=== PATIENT | female | born 1950 | race Caucasian/White ===

== ENCOUNTER → 2025-04-13 10:19 | Outpatient (CLI) | payer MEDICARE, MEDICAID, SELFPAY ==
--- NOTE | 2025-04-13 10:27 | EKG_ITS ---
[address] [address] Test Date: 2025-04-13 Pat Name: Glendy Cary Department: 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
[2025-04-13 11:27] LABS: Add Manual Diff / Slide Review NO; Basophils Absolute Auto 100 /uL (0-100); Basophils Percent Auto 0.9 % (0-2); Eosinophils Absolute Auto 200 /uL (0-450); Eosinophils Percent Auto 1.8 % (2-4); Hematocrit 44.4 % (36-46); Hemoglobin 14.6 g/dL (12.0-16.0); Lymphocytes Absolute Auto 2100 /uL (1100-4500); Lymphocytes Percent Auto 22.4 % (25-40); Mean Corpuscular HGB Conc 32.8 % (30-36); Mean Corpuscular Hemoglobin 32.5 PG (26-34); Mean Corpuscular Volume 99.2 fL (80-100); Monocytes Absolute Auto 800 /uL (0-900); Monocytes Percent Auto 8.3 % (3-14); Neutrophils Absolute Auto 6400 /uL (1500-7000); Neutrophils Percent Auto 66.6 % (50-75); Platelet Count 554 X10^3/uL (150-400); Red Blood Cell Count 4.48 X10^6/uL (4.0-5.2); White Blood Cell Count 9.6 X10^3/uL (4.5-11.0)
[2025-04-13 11:39] LABS: Hemoglobin A1C% w Est Avg Glu 5.2 % (4.0-6.0)
[2025-04-13 12:05] LABS: Appearance Urine UA CLEAR; Bilirubin Urine UA NEGATIVE (NEGATIVE); Color Urine UA YELLOW; Glucose Urine UA NEGATIVE (Negative); Ketones Urine UA NEGATIVE (NEGATIVE); Leukocyte Esterase Urine UA 3+ (NEGATIVE); Nitrite Urine UA NEGATIVE (Negative); Occult Blood Urine UA NEGATIVE (Negative); Protein Urine UA NEGATIVE (Negative); Specific Gravity Urine UA <=1.005 (1.000-1.035); Urobilinogen Urine UA 0.2 E.U./dL (0.2)
[2025-04-13 12:14] LABS: BUN Creatinine Ratio 22.1 (6-22); Blood Urea Nitrogen 17 mg/dL (7-17); Calcium 9.9 mg/dL (8.4-10.2); Carbon Dioxide 28 mmol/L (22-32); Chloride 104 mmol/L (98-107); Estimated Glomerular Filt Rate > 60 mL/min (>60); Glucose 97 mg/dL (70-99); HEMOLYSIS < 15 (0-50); Potassium 4.7 mmol/L (3.4-5.1); Sodium 140 mmol/L (137-145)
[2025-04-13 12:18] LABS: RBC Urine 0-1/HPF (0-5/HPF); Urine Volume 10mL (spun); WBC Urine 5-10/HPF (0-5/HPF)
[2025-04-13 12:19] LABS: Bacteria Urine Occasional (0-1); Culture Indicated Urine Specimen Cultured; Squamous Epithelial Cell Urine 1-5 /HPF (0-5/HPF); Transitional Epi Cells Urine 1-5/HPF (0-5/HPF); White Blood Cell Casts Urine 0-1/LPF
== END ==
PROVIDERS: PCP Family Medicine; Referring Provider Family Medicine; Visit Provider Orthopaedic Surgery
DX: Z01.818 Encounter for other preprocedural examination (principal); R73.9 Hyperglycemia, unspecified; N39.0 Urinary tract infection, site not specified; Z01.812 Encounter for preprocedural laboratory examination
CPT/HCPCS: 36415; 80048; 81001; 83036; 85025; 87086; 93005

== ENCOUNTER 2025-04-25 06:00 | Day surgery (SDC) | payer MEDICARE, MEDICAID, SELFPAY ==
[2025-04-18 08:27] VITALS: BMI 23.9
[2025-04-25] VITALS (12 sets, daily range): BP systolic 92–132; BP diastolic 50–81; PULSE 73–97; RESP 12–21; TEMP 35.8–36.6; O2SAT 91–100; BMI 23.9
--- NOTE | 2025-04-25 | DI.RAD.S_ITS ---
PROCEDURE: XR HIP W PEL IF DONE RT 2V INDICATIONS: INTRA OP TECHNIQUE: 2 view(s) of the hip acquired. COMPARISON: None. FINDINGS: Bones: Patient is status post right hip arthroplasty, with hardware components in expected positions. The hip joint appears congruent. The visualized bony structures appear intact. Soft tissues: Overlying postoperative changes are noted. No suspicious soft tissue densities. IMPRESSION: Expected post-operative appearance of a hip arthroplasty. Dictated by: Osman Rocha M.D. on 04/25/2025 at 11:02 Approved by: Osman Rocha M.D. on 04/25/2025 at 11:02
--- NOTE | 2025-04-25 06:00 | DI.RAD.S_ITS ---
PROCEDURE: XR PELVIS 1-2V INDICATIONS: RT TOTAL HIP INTRA-OP TECHNIQUE: Intra-operative view of the pelvis and hip acquired. COMPARISON: None. FINDINGS: Bones: Intraoperative devices prior to placement of arthroplasty prostheses are in expected positions. No fractures or suspicious bony lesions. Soft tissues: Overlying surgical retractors are present, along with other intraoperative changes. IMPRESSION: Intraoperative view of the pelvis for surgical indications. Dictated by: Osman Rocha M.D. on 04/25/2025 at 10:02 Approved by: Osman Rocha M.D. on 04/25/2025 at 10:03
[2025-04-25] MEDS: VANCOMYCIN 1,000 MG in SODIUM CHLORIDE 0.9% 250 ML 250 MG IV (06:46)
[2025-04-25] MEDS: ACETAMINOPHEN 325 MG TABLET 975 MG PO (06:47)
[2025-04-25] MEDS: LACTATED RINGERS 1,000 ML 42 ML IV ×2 (06:52→09:43)
--- NOTE | 2025-04-25 07:41 | PM.PREOP ---
Pre-operative Note Interval Note History & Physical reviewed/Exam performed by Physician: Yes Changes to H&P: No
--- NOTE | 2025-04-25 07:42 | PM.OP.1 ---
Operative Date/Time/Diagnoses Date of procedure: 04/25/25 Time of procedure: 07:42 Pre-op diagnosis: right hip OA Post-op diagnosis: same Procedure & Clinicians Procedure: Right total hip arthroplasty posterior approach Same procedure(s) as scheduled: Yes Indications: The patient has had progressively worsening right hip pain with radiographic changes consistent with arthritis. Non-operative management has failed and the patient has requested total hip replacement. The risks, benefits and alternatives to surgery were discussed with the patient prior to proceeding. Risks discussed included, but were not limited to, failure to relieve pain, leg length discrepancy, dislocation, stiffness, infection, nerve damage, deep venous thrombosis, pulmonary embolism, stroke, coma, heart attack, permanent paralysis and , as well as the potential need for eventual revision of the prosthetic. Surgeon: Sneha Ross Glass Cleaning Machine Tender: Osei Felix Anesthesia Type: General and Spinal Operative Notes Findings: Soft bone, severe arthritis, adequate stability Closure Type: primary Specimen(s): none sent Prosthetic devices, grafts, tissues, transplants, or devices: Ross and nephew R3 50, neutral poly liner,two 6.5 mm screws, Synergy cemented stem size 11 standard offset, cobalt chrome head 36 by +0 Applied: none Estimated Blood Loss (mL): 250 Blood products transfused: none Procedure in detail: The patient was seen in the pre-operative area, where the patient identified the right hip as the operative site and this was marked with my initials. The patient received pre-operative antibiotics and was taken to the operating room and placed on the operative table in the left lateral decubitus position after satisfactory anesthesia. A patient care manager out was performed. The right leg was prepared from the ankle to the iliac crest with ChloroPrep in the usual fashion and draped through sterile drapes. A PA was used during the procedure and was essential for intraoperative retraction and safe implantation of the components. The hip was approached through an approximately 20 cm incision centered over the greater trochanter and curving gently posteriorly as it went proximally. This was carried sharply to the fascia bianca, which was divided and retracted with a self retaining retractor. The trochanteric bursa was excised with care being taken to avoid the sciatic nerve, which was identified and protected throughout the case. The short external rotators were incised and the capsulomuscular flap was raised and tagged for later repair. The hip was dislocated, and a femoral neck osteotomy performed approximately 15 mm above the lesser trochanter. Retractors were placed around the femur. The canal was opened with a box cutting osteotome, followed by a T handled reamer and a lateralizing reamer. The reamers were used and then the initial broach was then used, followed by sequential broaching until there was good stability of the broach in the femur. Retractors were placed to expose the acetabulum. The labrum and central soft tissues were removed. Reaming was performed initially going up in 2 mm increments, then 1 mm increments until good bite was obtained with an odd sized reamer. The cup 1 mm larger than the last reamer was then inserted using the appropriate anteversion guides. It was further stabilized with two screws. A trial neutral liner was placed. The broach was placed in the canal. A trial head and neck were then placed and the hip relocated and checked for leg length and stability. An intraoperative film confirmed the component position and no evidence of fracture. The patient was stable in the position of sleep, of squatting, and could be put through a range of motion with 45 degrees internal rotation without dislocation. At 90 degrees flexion, internal rotation to 70 degrees was possible before dislocation. This was felt to be satisfactory and the appropriate components were opened, and the trials were removed. The acetabular liner was impacted into position. The final stem was then impacted into the prepared femoral canal. A brief Betadine soak was performed while trialing with head options. The hip was meticulously irrigated with normal saline. Finally the femoral head was impacted onto the stem. The acetabulum was cleared of all material and the hip relocated one final time. The capsulomuscular flap was then repaired to the greater trochanter though an awl hole using the tag sutures. The short external rotators were repaired with a nonabsorbable suture. The fascia bianca was closed with Vicryl. The subcutaneous layer was closed with barbed sutures and surgical glue. An Aquacel Ag dressing was applied and the patient was taken to recovery having tolerated the procedure well. Complications: none Post-operative Condition: stable Disposition: Acute Care Plan for aftercare: The patient will be maintained on a standard total hip replacement protocol with weight bearing as tolerated and posterior hip precautions. The patient will receive Aspirin and sequential compression devices for DVT prophylaxis. The patient will be discharged home when safe for the home environment.
[2025-04-25] MEDS: CEFAZOLIN 2 GM/100 ML PREMIX 100 ML IV ×3 (08:05→23:52)
[2025-04-25] MEDS: TRANEXAMIC ACID 1,000 MG VIAL 1000 MG INJ ×2 (08:07→09:45)
--- NOTE | 2025-04-25 08:41 | SUR.OPER ---
Lateral on padded OR bed. Gel axillary roll. Arms secured on padded armboard with pillow supporting top arm. Padded hip positioner braces x4 - anterior and posterior chest and pelvis. Additional gel pad used anterior pelvis. Gel pad under bottom leg from knee to foot and secured with tape over sheet.
[2025-04-25] MEDS: BUPIVACAINE LIPOSOME 266 MG/20 ML VIAL INJ (09:17)
[2025-04-25] MEDS: BUPIVACAINE 0.25% W/ EPI 30 ML VIAL 60 ML INJ (09:17)
[2025-04-25] MEDS: BUPIVACAINE 0.25% (PF) 60 ML, EPINEPHrine 0.3 MG INJ (09:18)
[2025-04-25] MEDS: OXYCODONE IR 5 MG TABLET PO ×4 (10:52→21:37)
[2025-04-25] MEDS: BENZOCAINE/MENTHOL 1 LOZ PKT 1 EACH PO (10:52)
[2025-04-25] MEDS: IBUPROFEN 400 MG TABLET PO ×2 (11:48→17:26)
[2025-04-25] MEDS: LACTATED RINGERS 1,000 ML 100 ML IV (11:49)
[2025-04-25] MEDS: ACETAMINOPHEN 325 MG TABLET 650 MG PO ×2 (12:45→23:52)
--- NOTE | 2025-04-25 14:43 | PT.IIE ---
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 fracture Pulmonary nodule, left Situational anxiety Thrombocytosis Physical Therapy Inpatient Evaluation/Re-Eval M1 PT/OT-IP Prior Functional Status Start: 04/25/25 16:06 Freq: NEEDED Status: Active Protocol: Document 04/25/25 14:43 AB (Rec: 04/25/25 16:15 AB [id number]) Medical Review Prior Functional Status Medical History Yes Reviewed Communication able to make needs known Mobility and Gait pt stated that she was modified independent with all mobilities and ambulation using a 4WW Social History Household Members none Living Arrangements Assisted Living Number of Floors ( Two Floors Floors) Number of Stairs To pt lives at [facility] BEN: 2nd floor with access to Enter/Railing? an elevator Home Environment Standard Height Toilet,Elevator Home Equipment Front Wheel Walker,Four Wheel Walker,Hand Held Shower, Sock Aid,Grab Bars Near Toilet,Grab Bars In Shower M2 PT-IP Current Condition Start: 04/25/25 16:06 Freq: NEEDED Status: Active Protocol: Document 04/25/25 14:43 AB (Rec: 04/25/25 16:15 AB [id number]) Physical Therapy Current Condition Current Condition Evaluation Date 04/25/25 Treatment Diagnosis s/p R MARLEY posterior; difficulty in walking Onset Date 04/25/25 M3 PT-IP Subjective Start: 04/25/25 16:06 Freq: NEEDED Status: Active Protocol: Document 04/25/25 14:43 AB (Rec: 04/25/25 16:15 AB [id number]) Subjective Physical Therapy Visit Type Type Initial Evaluation Visit Start Time 14:43 Visit Stop Time 15:20 Number of HEALTH INFORMATION TECH Visits 0 Physical Therapy Visit Comments Patient Comments agreeable to do PT Therapy Pain Assessment Pain When Pain Assessed At Rest Pain Present Pain Present Pain Reported Location right hip Intensity 4 Scale Used Numeric (0 - 10) Pain Management Apply Cold,Distraction,Modification of Treatment,Timing Techniques of Activity with Medications M4 PT-IP Mobility and Gait Start: 04/25/25 16:06 Freq: NEEDED Status: Active Protocol: Document 04/25/25 14:43 AB (Rec: 04/25/25 16:15 AB [id number]) PT-Bed Mobility Assessment Supine to Sit Supine to Sit Standby Assistance PT-Transfer Assessment Sit to and From Stand Sit to and from Contact Guard Assistance,1 Person Assistance,Use of Stand Upper Extremities Equipment Transfer Assistive Gait Belt,Front Wheeled Walker Device Orthotic/Prosthetic No Devices or Brace: Transfers Transfer Destination Toilet Transfer Technique ambulated Transfer Ability Level of Assist Contact Guard Assistance,1 Person Assistance,Use of Upper Extremities Comments Mobility Comments pt in bed and agreeable to do PT. obtained PLOF and home set up. educated pt on R hip posterior precautions. pt requested to use the toilet. supine to sit SBA. no c/o dizziness. sit to stand CGA and ambulated to the toilet using FWW CGA ~ 12 ft. OT took over pt's care. Gait Assessment Gait Gait Assistance Contact Guard Assist Required: Distance (Feet) 12 Able to Maintain Yes Weight Bearing Status During Gait Assistive Devices Assistive Device Gait Belt,Front Wheeled Walker Orthotic/Prosthetic No Devices or Brace: Gait Deviations General Gait Pattern Antalgic,Decreased Stride Length,Decreased Feet Clearance,Step-to Gait Factors Limiting Gait Function Factors Limiting Decreased Activity Tolerance,Decreased Sensation, Gait Function Decreased Strength,Limited Range of Motion,Pain,Poor Balance,Poor Safety Awareness PT-Balance Assessment Sitting Balance and Reactions Static Sitting Normal Balance Ability Dynamic Sitting Good Balance Ability Standing Balance and Reactions Static Standing Fair Balance Ability Dynamic Standing Fair Balance Ability Device Used FWW M5 PT-IP Objective Assessments Start: 04/25/25 16:06 Freq: NEEDED Status: Active Protocol: Document 04/25/25 14:43 AB (Rec: 04/25/25 16:15 AB [id number]) Orientation Orientation/Cognition Level of Alertness Alert Orientation Name,Place,Situation Language Function No Deficits Noted Ability Safety Awareness Decreased Safety Awareness Memory Description No Deficits Noted Gross Range of Motion Lower Extremity ROM Assessment Within Functional Limits Strength Lower Extremity Strength Assessment Right Impaired Hip 3+/5 Knee 4-/5 Coordination Assessment Gross Coordination Gross Coordination WNL Sensation Assessment Sensation Gross Sensation Right LE Impaired Sensation Numbness Description Comments Sensation Comments slight numbness on R foot per pt: chronic from neuropathy Muscle Tone Muscle Tone WNL Yes M6 PT-IP Treatment Start: 04/25/25 16:06 Freq: NEEDED Status: Active Protocol: Document 04/25/25 14:43 AB (Rec: 04/25/25 16:15 AB [id number]) Physical Therapy Treatment Education Education Provided Precautions,Weight Bearing Status,Post-Op Packet,Safety M7 PT-IP Assessment and Plan Start: 04/25/25 16:06 Freq: NEEDED Status: Active Protocol: Document 04/25/25 14:43 AB (Rec: 04/25/25 16:15 AB [id number]) PT Summary Assessment and Plan Potential Rehabilitation Good Potential Status of Condition Evolving at Evaluation Summary Impairments Pain,ROM,Strength,Balance,Coordination,Sensation,Tone, Cognition,Bed Mobility,Transfers,Gait,Activity Tolerance Assessment Summary pt is a 74 y/o F s/p R MARLEY posterior approach POD 0. pt with R hip posterior precautions and is WBAT. pt requiring CGA with mobility using FWW but needs cues for precautions and safety. pt lives at [facility] and has access to assistance when needed. will continue to assess progress. pt will benefit from HHPT vs outpt PT. Goals Bed Mobility Goal Independent Transfer Goal Independent,Front Wheeled Walker,Four Wheeled Walker Gait Goal Independent,Front Wheel Walker,Four Wheel Walker Gait Distance 150 Days to Meet Goals 5 Frequency of Treatment Frequency Of Twice a Day Treatment Treatment Plan Physical Therapy Bed Mobility Training,Transfer Training,Gait Training, Treatment Plan Therapeutic Exercise,Balance Retraining,Post Op Education,Discharge Planning,Hot or Cold Pack, Neuromuscular Re-ed,Coordination Retraining,Manual Therapy Precautions Posterior Hip No Hip Flexion > 90 degrees,No Hip Internal Rotation,No Precautions Hip Adduction Weight Bearing Status Weight Bearing Weight Bear as Tolerated Status Allowed Weight RLE WBAT Bearing Amount ( enter % or #) (%) Recommendations To Nursing Amount of Assist 1 Person Assist Needed Discharge Recommendations PT Discharge Home with Assistance,Home Health,Outpatient PT Recommendations Transportation Needs Private Vehicle,Wheelchair/Cabulance at Discharge - PT assist 1
--- NOTE | 2025-04-25 15:30 | OT.IP.EVAL ---
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 Pulmonary nodule, left Situational anxiety Thrombocytosis Surgical History (Last Updated 04/17/25 @ 13:46 by Mary Reilly, RN) Hx of appendectomy Hx of left mastectomy (07/2024) Occupational Therapy Inpatient Evaluation/Re-Eval M1 PT/OT-IP Prior Functional Status Start: 04/25/25 16:06 Freq: NEEDED Status: Active Protocol: Document 04/25/25 14:43 AB (Rec: 04/25/25 16:15 AB [id number]) Medical Review Prior Functional Status Medical History Yes Reviewed Communication able to make needs known Mobility and Gait pt stated that she was modified independent with all mobilities and ambulation using a 4WW Social History Household Members none Living Arrangements Assisted Living Number of Floors ( Two Floors Floors) Number of Stairs To pt lives at [facility] LONGTERM: 2nd floor with access to Enter/Railing? an elevator Home Environment Standard Height Toilet,Elevator Home Equipment Front Wheel Walker,Four Wheel Walker,Hand Held Shower, Sock Aid,Grab Bars Near Toilet,Grab Bars In Shower M2 OT-IP Current Condition Start: 04/25/25 15:55 Freq: Status: Active Protocol: Document 04/25/25 15:55 [facility] (Rec: 04/25/25 16:24 [facility] Desktop) Occupational Therapy Current Condition Current Condition Evaluation Date 04/25/25 Treatment Diagnosis S/P R MARLEY posterior precautions. Diagnosis Onset Date 04/25/25 Post Operative Precautions Posterior Hip No Hip Flexion > 90 degrees,No Hip Internal Rotation,No Precautions Hip Adduction Weight Bearing Status Weight Bearing Weight Bear as Tolerated Status M3 OT- IP Subjective and Pain Start: 04/25/25 15:55 Freq: Status: Active Protocol: Document 04/25/25 15:55 [facility] (Rec: 04/25/25 16:24 [facility] Desktop) OT- Subjective Occupational Therapy Visit Type Type Initial Evaluation Visit Start Time 14:50 Visit Stop Time 15:30 Occupational Therapy Visit Comments Patient Comments Pt agreed to get up for therapy eval. Patient/Caregiver To go home. Goals OT Pain Assessment Pain When Pain Assessed During Mobility Pain Present Pain Present Pain Reported Location right hip Intensity 4 Scale Used Numeric (0 - 10) M4 OT- IP ADL's Start: 04/25/25 15:55 Freq: Status: Active Protocol: Document 04/25/25 15:55 [facility] (Rec: 04/25/25 16:24 [facility] Desktop) OT ADL-Grooming Comments OT Grooming Comments Pt refused at this time. Pt able to wash her hands after set-up while in bed. OT ADL-Oral Care Comments Oral Care Comments Not performed OT ADL-Dressing General Eval Lower Body Dressing Maximum Assistance Ability Comments OT Dressing Comments Having to educate pt on use of LB dressing equipment for brief management needs. Pt initially trying to reach forwards to olegario her Depends. Also educated her to dress the RLE first and take out last. OT ADL-Toileting General Evaluation Toileting Ability Minimal Assistance Areas Needing Manage Clothing Assistance Comments OT Toileting Pt able to wipe appropriately without leaning forwards Comments more than 90degrees. Pt educated would be easier to stand and wipe after a bowel movement. OT ADL-Bathing Comments OT Bathing Comments Spoke of care of the dressing for showering needs. M5 OT- IP IADL's Start: 04/25/25 15:55 Freq: Status: Active Protocol: Document 04/25/25 15:55 [facility] (Rec: 04/25/25 16:24 [facility] Desktop) OT-Instrumental Activities of Daily Living Home Safety Awareness Home Safety Comments Pt is a little groggy from just having surgery this morning. Reminded her not to get up on her own and use the call light for assist. Medication Management Medication Pt states does her own. Management Comments Money Management Money Management Pt states does her own. Comments Brusher Machine Brusher Machine Pt will benefit from assist. Comments M6 OT- IP Functional Cognition Start: 04/25/25 15:55 Freq: Status: Active Protocol: Document 04/25/25 15:55 [facility] (Rec: 04/25/25 16:24 [facility] Desktop) Cognitive Factors Limiting Selfcare Function Cognitive Ability Level of Alertness Alert Patient Orientation Name,Age,Birthday,Month,Date,Year,Day of Week,Place, Situation Attention Span Capable of Focused Attention,Capable of Sustained Ability Attention Ability to Follow Able to Follow One Step Commands with Increased Time, Commands Able to Follow One Step Commands with Repetition Memory Description Short Term Impaired Safety Awareness Decreased Ability to Apply Precautions Cognitive Comments Cognitive Assessment Pt is still groggy from surgery and needing constant Comments reminders for hip precautions needs. OT- Vision and Hearing OT- Hearing Assessment OT- Hearing WFL Assessment OT- Vision Assessment Visual Acuity Glasses All The Time Visual Attentiveness WFL Occular Pursuits WFL M7 OT- IP Mobility and Balance Start: 04/25/25 15:55 Freq: Status: Active Protocol: Document 04/25/25 15:55 [facility] (Rec: 04/25/25 16:24 [facility] Desktop) OT- Bed Mobility Assessment Supine to Sit Supine to Sit Assist Standby Assistance OT-Transfer Assessment Sit to and From Stand Sit to and from Contact Guard Assistance Stand Transfers Transfer Ability Contact Guard Assistance Technique Transfer Destination Bed,Toilet Transfer Technique Stand Step Pivot Devices Transfer Assistive Gait Belt,Front Wheeled Walker Devices Comments Mobility Comments Educated pt to slide her RLE forwards prior to sitting and standing. To take small steps while turning with the FWW so not twisting over her right hip. OT- Balance Assessment Sitting Balance and Reactions Static Sitting Normal Balance Ability Dynamic Sitting Good Balance Ability Standing Balance and Reactions Static Standing Good Balance Ability Dynamic Standing Fair Balance Ability M8 OT- IP Objective Assessments Start: 04/25/25 15:55 Freq: Status: Active Protocol: Document 04/25/25 15:55 [facility] (Rec: 04/25/25 16:24 [facility] Desktop) OT Gross Range of Motion Upper Extremity Range of Motion Assessment Left Impaired OT Strength Upper Extremity Strength Assessment Left Impaired M9 OT- IP Assessment and Plan Start: 04/25/25 15:55 Freq: Status: Active Protocol: Document 04/25/25 16:24 [facility] (Rec: 04/25/25 16:27 [facility] Desktop) OT Summary Assessment and Plan Potential Rehabilitation Excellent Potential Analytic Complexity Low at Evaluation Summary OT Impairments Pain,Balance,Functional Mobility,Grooming,Dressing, Toileting,Bathing,Toilet Transfers,Shower Transfers Progress Towards Progressing Toward Goals Goals Assessment Summary Pt low complexity and main barrier pt still groggy and needing reminders to incorporate her hip precautions for ADL and mobility needs. Pt able to practice LB dressing equipment and used the toilet on OT eval. Pt will benefit from assist at home and outpt PT when medically stable. Goals Self-Feeding Goal Independent Grooming Goal Independent Dressing Goal Independent,Long Handled Shoe Horn,Chemicals Fermentation Operator,Sock Aid Toileting Goal Independent Toilet Transfer Goal Independent Shower Transfer Goal Standby Assistance Days to Meet Goals 3 Frequency of Treatment Frequency Of Once a Day Treatment Treatment Plan OT Treatment Plan ADL Training,Functional Mobility,Patient/Family Education,Discharge Planning Discharge Recommendations OT Discharge Home with Assistance,Outpatient PT Recommendations Home Equipment Needs bezel cutter, BSC, FWW Transportation Needs Private Vehicle at Discharge
[2025-04-25] MEDS: DOCUSATE 100 MG CAPSULE PO (21:36)
[2025-04-25] MEDS: ASPIRIN EC 81 MG TABLET PO (21:36)
[2025-04-26] MEDS: LACTATED RINGERS 1,000 ML 100 ML IV (03:12)
[2025-04-26] MEDS: OXYCODONE IR 5 MG TABLET PO (03:21)
[2025-04-26 04:00] VITALS: BP 91/53; PULSE 66; RESP 16; TEMP 36.6; O2SAT 96
[2025-04-26 06:12] LABS: Hematocrit 31.6 % (36-46); Hemoglobin 10.5 g/dL (12.0-16.0)
[2025-04-26] MEDS: ACETAMINOPHEN 325 MG TABLET 650 MG PO (06:42)
--- NOTE | 2025-04-26 06:53 | PC.NURSE ---
Assumed care of pt at 01:30
--- NOTE | 2025-04-26 07:41 | P.PN_ITS ---
Subjective Subjective Date Patient Seen: 04/26/25 Time Patient Seen: 07:41 Interval history: Postop day 1 right total hip replacement pain controlled bed a 03/04. No complaints this morning. State felt a little lightheaded when got up yesterday but was only up for a short while. Feels ready to go home later today. No fevers or chills no nausea no vomiting Exam Vital Signs (past 8 hours): - 04/26/25 04:00 Temperature 97.8 F Pulse Rate 66 Respiratory Rate 16 Blood Pressure 91/53 L Pulse Oximetry 96 Oxygen Flow Rate 0 Oxygen Delivery Method Room Air Oxygen Flow Rate 0 Narrative Exam Narrative: Alert and oriented no acute distress sitting up in bed answers questions appropriately. Breathing unlabored on room air. Right lower extremity with Aquacel in place. Dressing is clean dry and intact. Thigh and calf are soft. Demonstrates 5/5 dorsiflexion and plantar flexion. 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 Situational anxiety Degenerative joint disease of right hip Thrombocytosis Chronic constipation Pulmonary nodule, left Left thyroid nodule B12 deficiency Surgical History (Updated 04/17/25 @ 13:46 by Mary Reilly RN) Hx of appendectomy Hx of left mastectomy (07/2024) Social History household members: none Smoking Status: Former smoker alcohol intake: former Assessment & Plan Post-op Postoperative Procedures: Procedures Operation Date: 04/25/25 07:45 Actual Procedure Side Surgeon p Total Hip Arthroplasty Right Sneha Ross MD Postoperative day: 1 Postoperative status: doing well Postoperative status narrative: Doing well. Blood pressure is a little soft minimal symptoms. We will try switching down to a supervisor underwriting clerks opioid and have her work with physical therapy . If doing well plan discharge home this afternoon. Postoperative plan: routine post-op care Postoperative plan narrative: Weightbear as tolerated posterior hip precautions x6 weeks. Aspirin 81 mg b.i.d. for DVT prophylaxis Time Spent With Patient Time with patient: less than 15 minutes Quality VTE Deep Vein Thrombosis/Pulmonary Embolism Present on Admission: No
--- NOTE | 2025-04-26 07:44 | P.DS_ITS ---
History of Present Illness History of Present Illness Date Patient Seen: 04/26/25 Time Patient Seen: 07:44 Chief complaint: R MARLEY posterior *OPB* Narrative: Status post right hip replacement with Dr. Ross posterior approach date of surgery April 25, 2025. The patient was admitted to the hospital after surgery for pain control and to work with physical therapy. Pain was controlled on p.o. medications on postoperative day 1. Patient was deemed appropriate for discharge home with the assistance using the walker. Patient was instructed on posterior hip precautions. Discharge Providers Provider Date of admission: 04/25/2025 Discharge Date: 04/26/25 Primary care physician: Desiree Souza MD Consults: 04/25/25 06:00 Consult to Anesthesiology Routine Comment: Consulting Provider: Anesthesiologist Reason for consultation: Regional block for post operative pain control Has provider been notified: No 04/25/25 11:25 Consult to Discharge Planning Routine Comment: Consult to Occupational Therapy Evaluate & Treat Comment: Physician Instructions: Evaluate and treat Consult to Physical Therapy Evaluate & Treat Comment: Physician Instructions: post op MARLEY protocol Discharge provider: Yumiko Loredo MD Summary Hospital Course Discharge Diagnosis: Right hip arthritis Hospital Course: Patient was admitted to the floor postop for her right total hip replacement for hip arthritis. She will work with physical therapy. She was initially controlled on oral and IV pain medications which to oral pain medication as tolerated. She tolerated a p.o. diet and was appropriate for discharge on postoperative day 1. Status at Discharge Functional status at discharge: uses cane/walker Overall status at discharge: patient is progressing back to baseline Time Spent with Patient Time spent: Less than 30 minutes Exam Vital Signs (past 8 hours): - 04/26/25 04:00 Temperature 97.8 F Pulse Rate 66 Respiratory Rate 16 Blood Pressure 91/53 L Pulse Oximetry 96 Oxygen Flow Rate 0 Oxygen Delivery Method Room Air Oxygen Flow Rate 0 Narrative Exam Narrative: Alert and oriented no acute distress. Breathing unlabored on room air. Right lower extremity has Aquacel in the hip clean dry and intact. Thigh and calf are soft. 5/5 dorsiflexion plantar flexion. Sensation intact. 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 Stable for discharge home Plan of Treatment: will work with physical therapy again today and plan discharge home in the afternoon. will switch narcotic from oxycodone to tramadol. Additionally at home has a prescription that she can take for low-dose of gabapentin at night. Posterior hip precautions x6 weeks Weightbear as tolerated with the assistive devices May shower with the Aquacel dressing Aspirin 81 mg b.i.d. for 6 weeks for DVT prophylaxis And follow up in Orthopedic Clinic in 2 weeks Discharge Plan Discharge Plan Patient Disposition: Home Discharge orders & Medications Discharge Orders: Discharge (Order); Ordered 04/26/25 Ordered By: Yumiko Loredo Prescriptions: New polyethylene glycol 3350 17 gram Powder In Packet 17 g PO DAILY PRN (Reason: Constipation) Qty: 14 0RF aspirin 81 mg Tablet,Delayed Release (Dr/Ec) 81 mg PO BID Qty: 90 0RF ibuprofen 400 mg Tablet 400 mg PO Q4H PRN (Reason: Pain, Mild (1-3)) Qty: 90 0RF oxycodone 5 mg Tablet 5 mg PO Q3H PRN (Reason: Pain, Moderate (4-6)) Qty: 30 0RF tramadol 50 mg Tablet 50 mg PO QID PRN (Reason: Pain, Moderate (4-6)) Qty: 30 0RF Continued anastrozole 1 mg tablet 1 mg PO DAILY valacyclovir 1 gram tablet 1,000 mg PO DAILY alendronate 70 mg tablet 70 mg PO QWEEK acetaminophen [Acetaminophen Extra Strength] 500 mg tablet 1,000 mg PO TID Follow up/Referrals: Desiree Souza MD [Primary Care Provider, Family Practice] Diet/Activity/Treatments Diet: Diet as Tolerated Other treatments: May shower with the Aquacel dressing. Aspirin 81 mg b.i.d. for DVT prophylaxis x6 weeks. Follow up in Orthopedic Clinic in 2 weeks as previously scheduled. Use walker for ambulation Skin/Wound/Dressing Care Report to your healthcare provider any signs of infection, such as:: chills, fever, night sweats, increased pain, unusual drainage and unusual redness Visit Report/Discharge Packet Instructions: DI for Hip Replacement, DI for Prescription Opioid Use Stand Alone Forms: Patient Portal/API Print Language: [place] Discharge Data Primary Care Provider: Desiree Souza Attending Provider: Sneha Ross VTE Deep Vein Thrombosis/Pulmonary Embolism Present on Admission: No
[2025-04-26 08:00] VITALS: BP 105/54; PULSE 68; RESP 18; TEMP 36.6; O2SAT 95
--- NOTE | 2025-04-26 08:17 | CM.DANOTE ---
Initial DCP Assessment Visit Note Reviewed EMR and team rounds for pt's medical status and updates. Met with pt at bedside to introduce self and role. Pt was found to be alert/oriented, sitting upright in the recliner eating her breakfast. She states that her pain is well controlled, and that her dtr will be transporting her back to [facility] later this am after she works with PT. No CM d/c goals are identified at this time. Payor: Medicare Attending: Dr. Ross Pt is a 74 year-old F post-op day 1 from a R-total hip arthroplasty surgery. She has a hx of progressively worsening R-hip pain that has not improved with conservative efforts, as well as working with OP PT. She has all of the DME that she is needing for her postoperative recovery needs, and has OP PT set up. No further needs are indicated for CM at this time. Discharge Planning/Care Management CM Discharge Assessment Start: 04/25/25 06:33 Freq: Status: Active Protocol: Document 04/26/25 08:14 DPL (Rec: 04/26/25 08:16 DPL [id number]) Discharge Planning Assessment Assigned Discharge ASHLEY Pastrana Software Qa Manager Advance Directives? No: Has unsigned AD. History Provided By Patient,Medical Record Prior Living Assisted Living Arrangements Comment [facility] in [place] Household Members none Type of Relies on Others transporation used prior to admit Facility Name Other Admitted From: Willing to Return to Yes Facility? Independent with ADL No: modified independent with a walker 's Is patient alert and Yes oriented? Needs Assistance Home Chores / Shopping With Caregiver for No Another Community Services Physical Therapy used prior to admission: DME Already Rented / Bath Bench,Elevated Toilet Seat,FWW / Walker Owned Comment 4WW Patient/Family OP PT Therapy Preference Barriers to No Discharge Discharge Plan Assisted Living Facility Community Services Physical Therapy Referrals Initiated None needed Whiteboard Updated Yes in Patient Room with name and ext. # of Manager Regional Sales Review Status In Process Please Provide Date 04/26/25 Initial DC Assessment Was Performed Pre-Anesthesia Assessment Start: 04/18/25 08:27 Freq: Status: Complete Protocol: Document 04/18/25 08:27 LB (Rec: 04/18/25 09:18 LB [id number]) Pre-Anesthesia Assessment PAC Comment 04/18/25 Phone assessment. Patient Information Phone Assessment Reviewed Via Assessment Completed Patient,Child With Comment Daughter Janae. Diagnostic Results BMP/CMP,CBC,EKG Comment 04/13/25 at . Primary Care Desiree Souza Provider Seen Specialist in Yes Last 12 Months Specialist Seen Oncologist,Orthopedist Primary Language Setswana Preferred Language Setswana Senior Project Leader/Team Lead Required No Height 160.02 cm Weight 61.235 kg Body Mass Index (BMI 23.9 ) Hearing Ability Normal Visual Assist Glasses Dentition Type Full- Upper & Lower Barriers to Learning None Other Aids No Hx Anesthesia No Reactions Hx Family Anesthesia No Reaction Hx Malignant No Hyperthermia Hx Blood No Transfusions Anesthesia Review No Requested Loss Prevention Analyst No alcohol intake former Alcohol Intake 7 years sober. Frequency Other: Smoking Status Former smoker how long ago did Quit 2013. patient quit smoking Substance Use Type [ marijuana #R] Comment Edibles. Pain Present Pain Reported Comment Right hip. Musculoskeletal Difficulty Walking,Joint Pain Symptoms History of Falling ( Yes Recent or History of ) Patient is No completely paralyzed or completely immobile Prosthesis or Front Wheel Walker Orthotic Device Mental Status Oriented to own ability Comment Will bring walker. Is patient on oxygen No ? Does patient have No MCDONALD/SOB Hx Sleep Apnea No Currently Taking a No Beta Lidia Can You Climb a Yes Flight of Stairs Without SOB Hx Chest Pain No Hx SOB No Hx Syncope or No Dizziness Anti-Coagulant No Therapy Has a Hydrography Teacher No Cardiac Testing No Hx Pacemaker/ICD No Dysphagia No Gastrointestinal Reflux Symptoms Urinary Catheter No Present Hx Urinary Self No Catheterization Diabetes No HgbA1C 5.2 Date 04/13/25 Patient No Lactating No Hx Drug Resistant No Organism Presence of External Yes: IUD. or Internal Medical Devices Have you had any No close contact with someone diagnosed with COVID-19? Are you experiencing No symptoms any of these symptoms? Comment Denies covid last 8 weeks. Marital Status Current Living Assisted Living Arrangements Comment [facility] in [place]. Support System Child/Children Does the Patient Yes Have Assistance After Surgery Patient Discharge Return Home Plan Description Comment Advised overnight LOS. Feels Safe in Yes Current Environment Do you have thoughts None of harming yourself or others? Do You Have Any No Spiritual Beliefs That May Affect Your HC Choices? Do You Have Any No Cultural Practices That May Affect Your HC Choices? Emergency Contact Janae Springer - daughter Name Emergency Contact [phone] Phone Number Advance Directives? No: Has unsigned AD. PAC Instructions Do not shave/clip surgical site,Durable medical equipment,Medications to take/avoid,Nasal antibiotic,No ETOH/petroleum product on skin DOS,NPO,Pre-surgical wash,Sensory aids,Sturdy shoes/comfortable clothes,Do not bring valuables and remove jewelry
[2025-04-26] MEDS: IBUPROFEN 400 MG TABLET PO (08:42)
[2025-04-26] MEDS: ANASTROZOLE 1 MG TABLET PO (08:42)
[2025-04-26] MEDS: ASPIRIN EC 81 MG TABLET PO (08:42)
[2025-04-26] MEDS: TRAMADOL 50 MG TABLET PO (08:43)
[2025-04-26] MEDS: DOCUSATE 100 MG CAPSULE PO (08:43)
--- NOTE | 2025-04-26 09:37 | OT.IP.TRT ---
Current Diagnoses Unilateral primary osteoarthritis, right hip (04/25/25) Surgery Performed Operation Date: 04/25/25 07:45 Actual Procedures p Total Hip Arthroplasty(Right) - Sneha Ross MD Occupational Therapy Treatment Note M2 OT-IP Current Condition Start: 04/25/25 15:55 Freq: Status: Active Protocol: Document 04/25/25 15:55 CCC (Rec: 04/25/25 16:24 CCC Desktop) Occupational Therapy Current Condition Current Condition Evaluation Date 04/25/25 Treatment Diagnosis S/P R MARLEY posterior precautions. Diagnosis Onset Date 04/25/25 Post Operative Precautions Posterior Hip No Hip Flexion > 90 degrees,No Hip Internal Rotation,No Precautions Hip Adduction Weight Bearing Status Weight Bearing Weight Bear as Tolerated Status M3 OT- IP Subjective and Pain Start: 04/25/25 15:55 Freq: Status: Active Protocol: Document 04/26/25 10:04 CCC (Rec: 04/26/25 10:25 CCC Desktop) OT- Subjective Occupational Therapy Visit Type Type Treatment Note Visit Start Time 09:10 Visit Stop Time 09:37 Occupational Therapy Visit Comments Patient Comments Pt wanting to use the bathroom. Patient/Caregiver TO go home. Goals OT Pain Assessment Pain When Pain Assessed During Mobility Pain Present Pain Present Pain Reported Location right hip Intensity 4 Scale Used Numeric (0 - 10) M4 OT- IP ADL's Start: 04/25/25 15:55 Freq: Status: Active Protocol: Document 04/26/25 10:04 CCC (Rec: 04/26/25 10:25 CCC Desktop) OT [id number] General Evaluation Self-Feeding Ability Independent OT ADL-Grooming General Evaluation Grooming Ability Standby Assistance Areas Needing Retrieving/Set-up of Grooming Items Assistance Comments OT Grooming Comments Able to do while standing with the FWW. OT ADL-Dressing General Eval Lower Body Dressing Standby Assistance Ability Comments OT Dressing Comments Able to practice use or patented hogshead assembler and sock aid for LB dressing needs. Pt states to get a patented hogshead assembler. OT ADL-Toileting General Evaluation Toileting Ability Standby Assistance Comments OT Toileting Pt having to urgently use the bathroom and therefore Comments had pt use the BSC. Pt still needing reminders to slide her RLE forwards prior to standing and sitting. Pt states has ordered a BSC for home use. M5 OT- IP IADL's Start: 04/25/25 15:55 Freq: Status: Active Protocol: Document 04/25/25 15:55 [facility] (Rec: 04/25/25 16:24 [facility] Desktop) OT-Instrumental Activities of Daily Living Home Safety Awareness Home Safety Comments Pt is a little groggy from just having surgery this morning. Reminded her not to get up on her own and use the call light for assist. Medication Management Medication Pt states does her own. Management Comments Money Management Money Management Pt states does her own. Comments Social Services Analyst Social Services Analyst Pt will benefit from assist. Comments M6 OT- IP Functional Cognition Start: 04/25/25 15:55 Freq: Status: Active Protocol: Document 04/26/25 10:04 [facility] (Rec: 04/26/25 10:25 [facility] Desktop) Cognitive Factors Limiting Selfcare Function Cognitive Ability Safety Awareness Decreased Ability to Apply Precautions Cognitive Comments Cognitive Assessment Pt still needing MAX vc for safety awareness for her Comments hip precautions to slide her RLE forwards when coming to standing and sitting. Pt also needing reminders to bean picker her feet when turning and not to twist over her right hip. Suggested pt post her precautions in her apartment to help remind her. M7 OT- IP Mobility and Balance Start: 04/25/25 15:55 Freq: Status: Active Protocol: Document 04/26/25 10:04 [facility] (Rec: 04/26/25 10:25 [facility] Desktop) OT-Transfer Assessment Sit to and From Stand Sit to and from Standby Assistance Stand Transfers Transfer Ability Standby Assistance Technique Transfer Destination Bedside Commode,Chair Transfer Technique Stand Step Pivot Devices Transfer Assistive Gait Belt,Front Wheeled Walker,4 Wheeled Walker Devices Comments Mobility Comments Able to try pt's 4ww and able to move well but still needing vc to incorporate her hip precautions. OT- Balance Assessment Sitting Balance and Reactions Static Sitting Normal Balance Ability Dynamic Sitting Good Balance Ability Standing Balance and Reactions Static Standing Good Balance Ability Dynamic Standing Good Balance Ability M8 OT- IP Objective Assessments Start: 04/25/25 15:55 Freq: Status: Active Protocol: Document 04/25/25 15:55 [facility] (Rec: 04/25/25 16:24 [facility] Desktop) OT Gross Range of Motion Upper Extremity Range of Motion Assessment Left Impaired OT Strength Upper Extremity Strength Assessment Left Impaired M9 OT- IP Assessment and Plan Start: 04/25/25 15:55 Freq: Status: Active Protocol: Document 04/26/25 10:04 [facility] (Rec: 04/26/25 10:25 [facility] Desktop) OT Summary Assessment and Plan Potential Rehabilitation Excellent Potential Analytic Complexity Low at Evaluation Summary OT Impairments Pain,Balance,Functional Mobility,Grooming,Dressing, Toileting,Bathing,Toilet Transfers,Shower Transfers Progress Towards Progressing Toward Goals Goals Assessment Summary Pt doing well and main barriers is still needing MAX vc to incorporate her hip precautions during ADL and mobility needs. Pt to go home with assist and outpt PT . Goals Dressing Goal Independent,Long Handled Shoe Horn,Engraver Block,Sock Aid Toileting Goal Independent Toilet Transfer Goal Independent Shower Transfer Goal Standby Assistance Days to Meet Goals 2 Frequency of Treatment Frequency Of Once a Day Treatment Discharge Recommendations OT Discharge Home with Assistance,Outpatient PT Recommendations Home Equipment Needs patented hogshead assembler, BSC Transportation Needs Private Vehicle at Discharge
--- NOTE | 2025-04-26 09:40 | PT.IPTN ---
Current Diagnoses Unilateral primary osteoarthritis, right hip (04/25/25) Surgery Performed Operation Date: 04/25/25 07:45 Actual Procedures p Total Hip Arthroplasty(Right) - Sneha Ross MD Physical Therapy Treatment Note M2 PT-IP Current Condition Start: 04/25/25 16:06 Freq: NEEDED Status: Discharge Protocol: Document 04/25/25 14:43 AB (Rec: 04/25/25 16:15 AB [id number]) Physical Therapy Current Condition Current Condition Evaluation Date 04/25/25 Treatment Diagnosis s/p R MARLEY posterior; difficulty in walking Onset Date 04/25/25 M3 PT-IP Subjective Start: 04/25/25 16:06 Freq: NEEDED Status: Discharge Protocol: Document 04/26/25 09:40 AB (Rec: 04/26/25 12:43 AB [id number]) Subjective Physical Therapy Visit Type Type Treatment Note Visit Start Time 09:40 Visit Stop Time 10:05 Number of [employer]ST Visits 0 Physical Therapy Visit Comments Patient Comments agreeable to do PT Therapy Pain Assessment Pain When Pain Assessed At Rest Pain Present Pain Present Pain Reported Location right hip Intensity 2 Scale Used Numeric (0 - 10) Pain Management Distraction,Modification of Treatment,Re-positioning, Techniques Timing of Activity with Medications M4 PT-IP Mobility and Gait Start: 04/25/25 16:06 Freq: NEEDED Status: Discharge Protocol: Document 04/26/25 09:40 AB (Rec: 04/26/25 12:43 AB [id number]) PT-Bed Mobility Assessment Supine to Sit Supine to Sit Standby Assistance Sit to Supine Sit to Supine Standby Assistance PT-Transfer Assessment Sit to and From Stand Sit to and from Standby Assistance,1 Person Assistance,Use of Upper Stand Extremities Equipment Transfer Assistive Gait Belt,4 Wheeled Walker Device Orthotic/Prosthetic No Devices or Brace: Transfers Transfer Destination Toilet Transfer Technique ambulated Transfer Ability Level of Assist Standby Assistance,1 Person Assistance,Use of Upper Extremities Comments Mobility Comments pt sitting on the chair and agreeable to do PT. reviewed posterior hip precautions and pt only able to recall 1/3. educated pt again on hip precautions. sit to stand from chair SBA but with cues to adhere to hip precautions. pt ambulated in room ~ 100 ft using 4WW in the hallway. pt ambulated back to her room and sat on EOB. cues for hip precautions. completed sit<> supine SBA. pt completed step transfer to chair SBA using 4WW and cues. sit<>stand x 4 requiring SBA and initial max cues but able to complete min cues on 4th attempt. pt requested to use the toilet. sit to stand SBA and pt ambulated to the toilet using 4WW SBA and cues for safety. ambulated towards the sink using fWW SBA. able to maintain standing balance SBA while completing handwashing using 4WW for support. pt ambulated back to her chair using 4WW SBA. completed another sit<> stand SBA and without cues needed for techniques and safety. positioned pt on the chair. call light and table placed within reach. Gait Assessment Gait Gait Assistance Standby Assistance Required: Distance (Feet) 100 Able to Maintain Yes Weight Bearing Status During Gait Assistive Devices Assistive Device Gait Belt,4 Wheeled Walker Orthotic/Prosthetic No Devices or Brace: Gait Deviations General Gait Pattern Antalgic,Decreased Stride Length,Decreased Feet Clearance,Step-to Gait Factors Limiting Gait Function Factors Limiting Decreased Activity Tolerance,Decreased Strength,Limited Gait Function Range of Motion,Pain,Poor Balance,Poor Safety Awareness M5 PT-IP Objective Assessments Start: 04/25/25 16:06 Freq: NEEDED Status: Discharge Protocol: Document 04/25/25 14:43 AB (Rec: 04/25/25 16:15 AB [id number]) Orientation Orientation/Cognition Level of Alertness Alert Orientation Name,Place,Situation Language Function No Deficits Noted Ability Safety Awareness Decreased Safety Awareness Memory Description No Deficits Noted Gross Range of Motion Lower Extremity ROM Assessment Within Functional Limits Strength Lower Extremity Strength Assessment Right Impaired Hip 3+/5 Knee 4-/5 Coordination Assessment Gross Coordination Gross Coordination WNL Sensation Assessment Sensation Gross Sensation Right LE Impaired Sensation Numbness Description Comments Sensation Comments slight numbness on R foot per pt: chronic from neuropathy Muscle Tone Muscle Tone WNL Yes M6 PT-IP Treatment Start: 04/25/25 16:06 Freq: NEEDED Status: Discharge Protocol: Document 04/26/25 09:40 AB (Rec: 04/26/25 12:43 AB [id number]) Physical Therapy Treatment Education Education Provided Precautions,Weight Bearing Status,Safety M7 PT-IP Assessment and Plan Start: 04/25/25 16:06 Freq: NEEDED Status: Discharge Protocol: Document 04/26/25 09:40 AB (Rec: 04/26/25 12:43 AB [id number]) PT Summary Assessment and Plan Potential Rehabilitation Fair Potential Summary Impairments Pain,ROM,Strength,Balance,Coordination,Sensation,Tone, Cognition,Bed Mobility,Transfers,Gait,Activity Tolerance Progress Towards Slow Progress - Other Goals Assessment Summary pt requiring SBA with ambulation using 4WW and needs cues to adhere to hip precautions and safety. pt lives at [facility] and stated that there are staff that can assist her. pt will need assistance and can benefit from HHPT vs outpt PT. Goals Bed Mobility Goal Independent Transfer Goal Independent,Front Wheeled Walker,Four Wheeled Walker Gait Goal Independent,Front Wheel Walker,Four Wheel Walker Gait Distance 150 Days to Meet Goals 5 Frequency of Treatment Frequency Of Twice a Day Treatment Treatment Plan Physical Therapy Bed Mobility Training,Transfer Training,Gait Training, Treatment Plan Therapeutic Exercise,Balance Retraining,Post Op Education,Discharge Planning,Hot or Cold Pack, Neuromuscular Re-ed,Coordination Retraining,Manual Therapy Precautions Posterior Hip No Hip Flexion > 90 degrees,No Hip Internal Rotation,No Precautions Hip Adduction Weight Bearing Status Weight Bearing Weight Bear as Tolerated Status Allowed Weight RLE WBAT Bearing Amount ( enter % or #) (%) Recommendations To Nursing Amount of Assist 1 Person Assist Needed Discharge Recommendations PT Discharge Home with Assistance,Home Health,Outpatient PT Recommendations Transportation Needs Private Vehicle,Wheelchair/Cabulance at Discharge - PT assist 1
== END 2025-04-26 11:24 | disposition home or self-care (01) ==
LOC: OR 06:01 → AC 06:05
PROVIDERS: PCP Family Medicine; Referring Provider Physician Assistant Surgical; Visit Provider Orthopaedic Surgery
PROC: 0SR90JZ Replacement of Right Hip Joint with Synthetic Substitute, Open Approach (ICD-10-PCS; CPT 27130; principal; 2025-04-25 07:45)
DX: M16.11 Unilateral primary osteoarthritis, right hip (principal); M81.0 Age-related osteoporosis without current pathological fracture; K21.9 Gastro-esophageal reflux disease without esophagitis; Z85.3 Personal history of malignant neoplasm of breast; Z87.891 Personal history of nicotine dependence
CPT/HCPCS: 27130; 36415; 72170; 73502; 85014; 85018; 97162; 97165; 97530; 97535; C1776; C1713; J0171; J0666; J0690; J1100; J2250; J2405; J2704; J3010; J3490